=== PATIENT | female | born 1950 | race Caucasian/White ===

== ENCOUNTER → 2019-09-01 | Outpatient (REF) | LOC: M LAB LCGH 15:45 | PROVIDERS: ATTEND Physician Assistant | DX: L57.0 Actinic keratosis (principal) ==

== ENCOUNTER → 2023-08-31 | Outpatient (CLI) | payer MEDICARE | LOC: M PLAIMG 13:44 | PROVIDERS: ATTEND Physician Assistant | DX: J32.8 Other chronic sinusitis (principal) ==

== ENCOUNTER 2024-03-07 09:31 | Day surgery (SDC) | payer MEDICARE, MEDICAID ==
[~2024-03-07] VITALS: Ht 160 cm; Wt 74.8 kg
[~2024-03-07 09:31] MED LIST: ASCO500C3 PO; COLL1CAP PO; CVS-161 PO; FLUTISP; METO1TAB7 PO; POTA595T16 PO; ROSU5TAB5 PO; SUPETAB56 PO; THERTAB52 PO; TUME1CAP PO
[2024-03-07] MEDS ORDERED: LR 1,000 ML IV SCH ×3 (10:00→12:20)
[2024-03-07] MEDS ORDERED: propofoL 200 MG/20 ML VIAL As Ordered ONE (10:05)
[2024-03-07] MEDS ORDERED: ROCURONIUM BROMIDE 50MG/5ML VIAL As Ordered ONE (10:05)
[2024-03-07] MEDS ORDERED: fentaNYL 100 MCG/2 ML INJECTION As Ordered ONE (10:05)
[2024-03-07] MEDS ORDERED: LIDOCAINE 2% 100MG/5ML SDV (FOR ANES.) As Ordered ONE (10:05)
[2024-03-07] MEDS ORDERED: MIDAZOLAM INJ 2MG/2ML VIAL As Ordered ONE (10:05)
[2024-03-07] MEDS ORDERED: ONDANSETRON 4MG 2ML VIAL As Ordered ONE (10:59)
[2024-03-07] MEDS ORDERED: ACETAMINOPHEN 1000MG 100ML IV BAG As Ordered ONE (11:01)
[2024-03-07] MEDS: COCAINE 4% 4ML NASAL SOLUTION BTL As Ordered ONE (11:11)
[2024-03-07] MEDS: LIDOCAINE W/EPINEPHRINE 1% 20ML VIAL As Ordered ONE (11:17)
[2024-03-07] MEDS: OXYMETAZOLINE 0.05% NASAL SPRAY (AFRIN) As Ordered ONE (11:42)
[2024-03-07] MEDS ORDERED: MEPERIDINE 25 MG/ML 1ML VIAL IV PRN (12:00)
[2024-03-07] MEDS ORDERED: diphenhydrAMINE 50MG/ML VIAL IV PRN (12:00)
[2024-03-07] MEDS ORDERED: fentaNYL 100 MCG/2 ML INJECTION IV PRN (12:00)
[2024-03-07] MEDS: oxyCODONE 5MG TAB PO PRN (12:19)
[2024-03-07] MEDS: ONDANSETRON 4MG 2ML VIAL IV PRN (12:19)
[2024-03-07] MEDS: METOCLOPRAMIDE INJ 10MG/2ML VIAL IV PRN (12:19)
[2024-03-07] MEDS ORDERED: ANEXSIA, NORCO 7.5MG/325MG TABLET(HYDROCODONE/APAP) PO PRN (12:20)
[2024-03-07] MEDS: HYDROMORPHONE HCL 0.5 MG/ 0.5 ML SYRINGE IV PRN (12:20)
[2024-03-07] MEDS: LABETALOL 100MG/20ML VIAL IV PRN (12:56)
[2024-03-07 13:08] VITALS: BP 184/85
[2024-03-07 13:45] VITALS: BP 160/88; TEMP 96.9; O2SAT 96
== END 2024-03-07 14:17 | disposition home or self-care (01) ==
LOC: M SDC 09:31
PROVIDERS: ATTEND Otolaryngology
DX: J34.3 Hypertrophy of nasal turbinates (principal); J34.2 Deviated nasal septum; I10 Essential (primary) hypertension; E78.5 Hyperlipidemia, unspecified; G47.33 Obstructive sleep apnea (adult) (pediatric); Z79.899 Other long term (current) drug therapy
CPT/HCPCS: 30140; 30520; C9143; J0131; J1100; J1170; J1920; J2250; J2405; J2765; J3010